=== PATIENT | male | born 2000 | race Hispanic/Latino ===

== ENCOUNTER 2019-10-04 07:25 | Emergency (ER) | payer SELFPAY ==
[2019-10-04 07:37] VITALS: BP 119/59
--- NOTE | 2019-10-04 10:31 | Emergency Department Report ---
ED Upper Extremity Inj HPI - General Chief Complaint: Extremity Problem,Nontraumatic Stated Complaint: WRIST/THUMB INJURY Time Seen by Provider: 10/04/19 09:47 Source: patient Mode of arrival: Ambulatory Limitations: No Limitations - History of Present Illness Initial Comments: This is a 18-year-old -[place] male who presents to the emergency room with pain and discomfort to right wrist for 3 days. Patient states he uses hands a lot at work and not sure if he injured his wrist while working. Patient reports pain is worse when he hyperextended his right thumb. Patient states when he woke up this morning he felt like something was moving around in proximal portion of right his right thumb. Patient states his mom applied an Stef bandage which helped symptoms. He denies numbness or tingling, weakness, swelling, and bruising. MD Complaint: Injury to:: right, wrist Onset/Timin -: days(s) Other Extremity Injury: Wrist: Right Other Injuries: none Handedness: right Severity scale (0 -10): 7 Improves With: immobilization Worsens With: movement of extremity Associated Symptoms: denies other symptoms Treatments Prior to Arrival: bandage - Related Data Allergies Allergy/AdvReac Type Severity Reaction Status Date / Time No Known Allergies Allergy Unverified 10/04/19 07:35 ED Review of Systems ROS: Stated complaint: WRIST/THUMB INJURY Other details as noted in HPI Constitutional: denies: chills, fever Respiratory: denies: cough, shortness of breath, wheezing Cardiovascular: denies: chest pain, palpitations Gastrointestinal: denies: abdominal pain, nausea, diarrhea Musculoskeletal: arthralgia (right wrist pain). denies: back pain, joint swelling Skin: denies: rash, lesions Neurological: denies: headache, weakness, paresthesias Psychiatric: denies: anxiety, depression ED Past Medical Hx - Past Medical History Previous Medical History?: No - Surgical History Past Surgical History?: No ED Physical Exam - General Limitations: No Limitations General appearance: alert, in no apparent distress - Neck Neck exam: Present: normal inspection - Respiratory Respiratory exam: Present: normal lung sounds bilaterally. Absent: respiratory distress - Cardiovascular Cardiovascular Exam: Present: regular rate, normal rhythm. Absent: systolic murmur, diastolic murmur, rubs, gallop - GI/Abdominal GI/Abdominal exam: Present: soft, normal bowel sounds - Expanded Upper Extremity Exam Right Shoulder Exam: Present: normal inspection, full ROM Elbow exam: Present: normal inspection, full ROM Forearm Wrist exam: Present: normal inspection, full ROM Hand Wrist exam: Present: full ROM, tenderness (point tenderness of carpel tunnel), swelling (mild swelling in medial wrist). Absent: laceration, ecchymosis, deformity, crepidus, erythema Neuro motor exam: Present: wrist extension intact, thumb opposition intact, thumb IP flexion intact, thumb adduction intact, fingers 2-5 abduction intact Neurosensory exam: Present: radial nerve intact, ulnar nerve intact, median nerve intact Vascular: Present: normal capillary refill (brisk), radial pulse (+2) - Neurological Exam Neurological exam: Present: alert, oriented X3 - Psychiatric Psychiatric exam: Present: normal affect, normal mood - Skin Skin exam: Present: warm, dry, intact, normal color. Absent: rash ED Course Vital Signs 10/04/19 07:36 Temperature 98.3 F Pulse Rate 74 Respiratory 16 Rate Blood Pressure 119/59 O2 Sat by Pulse 99 Oximetry ED Medical Decision Making - Radiology Data Radiology results: report reviewed RIGHT WRIST 4 VIEWS INDICATION / CLINICAL INFORMATION: pain. COMPARISON: None available. FINDINGS: No significant skeletal abnormality. - Medical Decision Making 18-year-old male with right wrist pain for 3 days. Vitals are stable inpatient in no acute distress. X-ray of right wrist obtained. No significant skeletal abnormality. Patient will be given a wrist brace to sleep in at night. Patient will also be ordered to slowly progress activities that involve use of the wrist. Take NSAIDs for pain. Follow-up with PCP. Given referral to orthopedics when necessary follow-up. Patient discharged home stable. Critical care attestation.: If time is entered above; I have spent that time in minutes in the direct care of this critically ill patient, excluding procedure time. ED Disposition Clinical Impression: Carpal tunnel syndrome of right wrist, Acute pain of right wrist Disposition: - TO HOME OR SELFCARE Is pt being admited?: No Condition: Stable Instructions: Carpal Tunnel Syndrome (ED) Additional Instructions: We are wrist brace for comfort. Take [id number] Tylenol, ibuprofen, or naproxen every 6-8 hours as needed for pain. Follow-up with your primary care doctor. I have also provided a list of orthopedic surgeons for follow-up if needed. Referrals: [facility] [Outside] - 3-5 Days [facility] [Outside] - 3-5 Days ELEONORA GALVAN MD [Staff Physician] - 3-5 Days JAYLA BAIN MD [Staff Physician] - 3-5 Days [facility] [Provider Group] - 3-5 Days Forms: Work/School Release Form(ED) Time of Disposition: 11:11
--- NOTE | 2019-10-04 11:04 | XRay Report ---
RIGHT WRIST 4 VIEWS INDICATION / CLINICAL INFORMATION: pain. COMPARISON: None available. FINDINGS: No significant skeletal abnormality. Signer Name: Damaso Stinson MD [facility] Signed: 10/04/2019 10:59 AM Workstation Name: [id number]
== END 2019-10-04 11:35 | disposition home or self-care (01) ==
LOC: ED 07:25
DX: G56.01 Carpal tunnel syndrome, right upper limb (principal)